=== PATIENT | male | born 1940 | race Caucasian/White ===

== ENCOUNTER 2022-06-23 12:40 | Emergency (ER) | payer MEDICARE ==
[2022-06-23] VITALS (11 sets, daily range): BP systolic 149–180; BP diastolic 76–96
[~2022-06-23] VITALS: Ht 167.6 cm; Wt 65.0 kg
[2022-06-23] MEDS ORDERED: NORVASC5 M1 PO (14:22)
[2022-06-23] MEDS ORDERED: VALSARTAN80 MG PO (14:23)
[2022-06-23] MEDS ORDERED: METHOCARBAMOL500 MG PO (16:17)
[2022-06-23] MEDS ORDERED: HYDROCO/APAP1 TA9 PO (16:17)
== END 2022-06-23 16:50 | disposition home or self-care (01) ==
LOC: ED 12:40
DX: S46.911A Strain of unspecified muscle, fascia and tendon at shoulder and upper arm level, right arm, initial encounter (principal); M25.552 Pain in left hip; I10 Essential (primary) hypertension; W01.0XXA Fall on same level from slipping, tripping and stumbling without subsequent striking against object, initial encounter